=== PATIENT | female | born 1990 | race Caucasian/White ===

== ENCOUNTER 2023-12-24 12:34 | Emergency (ER) | payer MEDICAID, SELFPAY ==
[2023-12-24 12:35] VITALS: BP 115/83; PULSE 88; RESP 20; TEMP 35.4; O2SAT 93; BMI 34.0
--- NOTE | 2023-12-24 12:43 | EKG12_ITS ---
Test Reason : CP Blood Pressure : / mmHG Vent. Rate : 081 BPM Atrial Rate : 081 BPM P-R Int : 152 ms QRS Dur : 092 ms QT Int : 382 ms P-R-T Axes : 026 018 025 degrees QTc Int : 443 ms Normal sinus rhythm Normal ECG Confirmed by Michael Javier ([id number]), photography editor SAMANTHA MCKEON ([id number]) on 12/26/2023 2:17:20 PM Referred By: KJ Confirmed By:Michael Javier
[2023-12-24 13:10] VITALS: O2SAT 95
--- NOTE | 2023-12-24 13:12 | NURSING ---
NO OLD EKGS
--- NOTE | 2023-12-24 13:23 | RAD_ITS ---
STUDY: X-RAY CHEST REASON FOR EXAM: Female, 33 years old. Chest pain TECHNIQUE: Frontal view of the chest COMPARISON: None. FINDINGS: There is a right lower lobe infiltrate. The lungs are otherwise clear. There are no pleural effusions. There is no pneumothorax. The heart is normal in size. The visualized osseous structures are within normal limits. RAD/Chest 1 View (Portable) IMPRESSION: Right lower lobe infiltrate. Electronically Signed: Augustine Duffy MD at 14:15 EDT ,
--- NOTE | 2023-12-24 13:24 | EX.ED.DYSGE1 ---
HPI History of Present Illness Chief Complaint: Cough Detail of Chief Complaint: Not feeling well x 8 days Informant: patient Narrative Narrative: Patient presents with an illness that started 8 days ago. Initially she states she woke up with nausea and vomiting and feeling achy. She had 1 day where she had diarrhea. She developed a cough and she has been bringing up some yellow phlegm. Her headache is will go away and is located behind her right eye and is throbbing with nausea and photophobia. She does get headaches frequently and does get migraines. She has had intermittent fevers last of which was 4 days ago with a temp of 103. She denies urinary symptoms. Patient went to urgent care today and was referred to the emergency department. She denies any sick contacts. PFSH [facility] Medical History no medical history Home Medications ?Medication ?Instructions ?Recorded ?Last Taken ?Type levofloxacin 750 mg tablet 750 mg PO DAILY #6 tabs 12/24/23 Unknown Rx Allergy/AdvReac Type Severity Reaction Status Date / Time No Known Allergies Allergy Verified 12/24/23 12:35 Family History no significant family his Surgical History no surgical history Social History Smoking Status: Never smoker ROS ROS ED Review of Systems ROS Unobtainable: other Constitutional Constitutional ED: Reports fever(s) and lethargy; Denies chills, sweats or weight loss Eyes Eyes: Denies blurry vision, change in vision or diplopia ENT ENT ED: Denies rhinorrhea or sore throat Cardiovascular Cardiovascular: Reports chest pain and racing heartbeat; Denies orthopnea Respiratory/Chest Respiratory/Chest: Reports cough; Denies dyspnea, dyspnea on exertion, orthopnea or sputum Gastrointestinal Gastrointestinal: Reports diarrhea, nausea and vomiting; Denies abdominal pain Genitourinary Genitourinary ED: Denies dysuria, hematuria or urinary frequency Musculoskeletal Musculoskeletal: Denies arthralgias, back pain, myalgias or neck pain Integumentary Denies abscess, Abrasions or rash Neurologic Neurologic: Denies headache(s) or weakness Psychiatric Psychiatric: Denies anxiety, depression or suicidal thoughts Endocrine Endocrinology: Denies polydipsia, polyphagia or polyuria Hematologic/Lymphatic Hematologic/Lymphatic: Denies easy bleeding, easy bruising or lymphadenopathy Allergic/Immunologic Allergic/Immunologic ED: Denies mouth swelling, tongue swelling or urticaria EXAM Physical Exam Const Vital Signs: 12/24/23 12:35 12/24/23 13:10 12/24/23 14:35 Temperature 95.7 F L Temperature Source Temporal Pulse Rate 88 67 Respiratory Rate 20 H 18 Respiratory Effort Normal Respiratory Depth Normal Respiratory Pattern Normal Blood Pressure 115/83 H 112/67 Blood Pressure Mean 93 82 Pulse Ox 93 98 Oxygen Delivery Method Room Air Room Air Room Air Positive well nourished and well developed General Appearance ED: well developed and NAD HEENT Reports TM's clear and moist mucous membranes normocephalic and atraumatic; Negative for trauma or tenderness Tympanic Membrane ED: Yes TM's clear Eyes PERRL and EOMs intact bilaterally General Eye ED: Negative for pale conjunctiva or scleral icterus Neck no lymphadenopathy, supple and no JVD General: Negative for tenderness Chest Wall inspection of chest normal and palpation of chest normal Chest: Negative for tenderness Resp normal respiratory effort and clear to auscultation bilaterally Effort and Inspection: Negative for respiratory distress or pain with movement Auscultation: Negative for rhonchi, wheezes or diminished lung sounds Cardio regular rate, regular rhythm, S1 normal heart sound, S2 normal heart sound and no murmurs Peripheral Pulses: pulses 2+ throughout GI normal to inspection, nondistended, normoactive bowel sounds, soft to palpation, non-tender, non-distended and no masses Back/Spine no CVA tenderness and no thoracic nor lumbar tenderness Extremity normal to inspection General Extremety ED: Negative for edema General Extremity: Negative for edema Neuro oriented x3, CN's II-XII intact bilaterally, no sensory deficits noted and gait normal Neuro Narrative: Finger-nose and heel ross testing within normal limits, negative Romberg, negative for drift, fundi benign Sensorium / Orientation: awake, alert, oriented to person, oriented to place and oriented to time Motor Exam: strength 5/5 throughout and strength abnormal Psych mental status grossly normal Skin no rashes or lesions noted and no wounds MDM MDM MDM Narrative Medical decision making narrative: Patient presents with complaint not feeling well for about 8 days. She continues with cough and fever. Cough at times productive of yellow sputum. Initially started with vomiting and diarrhea as well. Vomiting and diarrhea is since resolved. In the differential would be viral syndrome versus pneumonia. Patient also with a headache which again could be consistent with a viral syndrome. Patient also with history of migraines and this could be a migraine. IV line established. She was given Reglan and Benadryl and Toradol and her headache essentially resolved. I ordered COVID flu and RSV testing which she refused. I did do a chest x-ray that showed a right lower lobe infiltrate/pneumonia. Patient was started on Levaquin. Her vital signs are stable and she is not hypoxic or tachycardic. No significant tachypnea. Will treat with Levaquin for 7 days. Advised to follow-up with primary care physician on-call for no doc within the next 3 to 5 days. To return if increasing shortness of breath or condition should worsen anyway. Lab Data Attestation: I reviewed the patient's lab results. Radiography Diagnostic Testing: Clinical Impression(s) from Imaging Studies Chest X-Ray 12/24/23 13:23 IMPRESSION: Right lower lobe infiltrate. Electronically Signed: Augustine Duffy MD at 14:15 EDT , 1 view chest x-ray obtained interpreted by myself as right lower lobe infiltrate. Radiology in agreement. EKG Initial EKG: Attestation: I personally reviewed and interpreted this EKG as follows: Comments: Sinus rhythm with rate of of 81 bpm with no acute ST segment changes Discharge Plan Triage Chief Complaint: Cough ED Provider: Jose Wang Dx/Rx/DC Orders Clinical Impression: Headache, migraine, Pneumonia Instructions: ED, Migraine (Classical), ED Pneumonia (Adult) Prescriptions: New levofloxacin 750 mg tablet 750 mg PO DAILY Qty: 6 0RF Primary Care Provider: Care Physician,No Primary Referrals: Jeronimo Flores MD [Non-Staff] - 3-5 Days Care Physician,No Primary [Primary Care Provider] - Print Language: Italian Disposition Disposition: Home, Self Care
[2023-12-24] MEDS: 0.9% Normal Saline (1000mL) 1,000 ML 1000 ML IV (13:41)
[2023-12-24] MEDS: Metoclopramide 10 MG/2 ML Vial IV (13:43)
[2023-12-24] MEDS: DiphenhydrAMINE 50 MG/ML Syringe 25 MG IV (13:44)
[2023-12-24] MEDS: Ketorolac 30 MG/ML Syringe IV (13:46)
--- NOTE | 2023-12-24 13:51 | ED.RN ---
PT REFUSED COVID/FLU TEST/DR. HUNT AWARE
[2023-12-24 14:35] VITALS: BP 112/67; PULSE 67; RESP 18; O2SAT 98
[2023-12-24 15:05] VITALS: BP 112/67; PULSE 74; RESP 18; TEMP 36.3; O2SAT 98
[2023-12-24] MEDS: levoFLOXacin 750 MG Tablet PO (15:09)
== END 2023-12-24 15:09 | disposition home or self-care (01) ==
PROVIDERS: Emergency Provider Emergency Medicine; Visit Provider Emergency Medicine
DX: J18.9 Pneumonia, unspecified organism (principal); G43.909 Migraine, unspecified, not intractable, without status migrainosus; R19.7 Diarrhea, unspecified; R11.2 Nausea with vomiting, unspecified
CPT/HCPCS: 71045; 93005; 96361; 96374; 96375; 99283; A4216